=== PATIENT | female | born 1995 | race African-American/Black ===

== ENCOUNTER 2018-09-29 10:39 | Emergency (ER) | payer MEDICAID, OTHER ==
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
== END 2018-09-29 12:30 | disposition home or self-care (01) ==
LOC: MADERS 10:39
DX: S16.1XXA Strain of muscle, fascia and tendon at neck level, initial encounter (principal); V49.9XXA Car occupant (driver) (passenger) injured in unspecified traffic accident, initial encounter
CPT/HCPCS: 70450; 72125; G0390